=== PATIENT | female | born 1990 | race Hispanic/Latino ===

== ENCOUNTER 2024-05-14 12:51 | Emergency (ER) | payer BC ==
[~2024-05-14] VITALS: Ht 162.6 cm; Wt 66.7 kg
[2024-05-14 13:51] LABS: BASOPHILS # (AUTO) 0.02 K/uL (0.00-0.20); BASOPHILS % (AUTO) 0.4 % (0.0-5.0); EOSINOPHILS # (AUTO) 0.08 K/uL (0.00-0.70); EOSINOPHILS % (AUTO) 1.4 % (0.0-8.0); HEMATOCRIT 35.2 % (36-48); IMMATURE GRANULOCYTE ABSOLUTE 0.01 K/uL (0-1); LYMPHOCYTES # (AUTO) 2.2 K/uL (1.0-4.8); LYMPHOCYTES % (AUTO) 38.3 % (21.0-51.0); MEAN CORPUSCULAR HEMOGLOBIN 32.9 pg (27.0-33.0); MEAN CORPUSCULAR HGB CONC 33.8 g/dL (32.0-36.0); MEAN CORPUSCULAR VOLUME 97.2 fL (79-99); MONOCYTES # (AUTO) 0.6 K/uL (0.1-1.0); MONOCYTES % (AUTO) 10.2 % (3.0-13.0); NEUTROPHILS # (AUTO) 2.8 K/uL (1.8-7.7); NEUTROPHILS % (AUTO) 49.5 % (40.0-77.0); PLATELET COUNT (AUTO) 218 K/uL (130-400); RED BLOOD CELL COUNT(AUTO) 3.62 MIL/uL (4.00-5.50); RED CELL DISTRIBUTION WIDTH 12.3 % (11.0-15.5); WHITE BLOOD COUNT (AUTO) 5.7 K/uL (4.8-10.8)
[2024-05-14 13:59] LABS: CREATININE 0.9 mg/dL (0.5-1.0); POTASSIUM 4.8 mmol/L (3.5-5.1)
[2024-05-14 14:04] LABS: ALBUMIN 3.9 g/dL (3.5-5.0); BILIRUBIN,TOTAL 0.2 mg/dL (0.2-1.0); TOTAL PROTEIN, SERUM 7.3 g/dL (6.0-8.3)
[2024-05-14] MEDS: 0.9%NACL 1000ML 1,000 ML IV ONE (14:08)
[2024-05-14 14:26] LABS: APPEARANCE,URINE CLEAR (CLEAR); BILIRUBIN,URINE NEGATIVE (NEGATIVE); COLOR,URINE COLORLESS (YELLOW); GLUCOSE, URINE (UA) NEGATIVE (NEGATIVE); KETONES,URINE NEGATIVE (NEGATIVE); LEUKOCYTE ESTERASE ,URINE NEGATIVE Leu/uL (NEGATIVE); NITRATE,URINE NEGATIVE (NEGATIVE); OCCULT BLOOD,URINE NEGATIVE (NEGATIVE); PROTEIN,URINE NEGATIVE (NEGATIVE); UROBILINOGEN,URINE 0.2 mg/dL (0.2-1.0)
[2024-05-14 14:38] LABS: ADD UA MICROSCOPIC NO
[2024-05-14 14:41] LABS: HCG,QUALITATIVE URINE NEGATIVE (NEGATIVE)
[2024-05-14] MEDS ORDERED: GOLY4L PO (14:43)
[2024-05-14] MEDS: KETOROLAC 30MG VIAL (30MG/ML) IVP ONE (14:54)
[2024-05-14] MEDS: SOLU-MEDROL 125MG VIAL IVP ONE (15:38)
[2024-05-14] MEDS ORDERED: IBUP-2077 PO (15:40)
[2024-05-14] MEDS ORDERED: METH4TAB3 PO (15:40)
[2024-05-14 16:46] VITALS: BP 105/63; PULSE 81; RESP 18; O2SAT 99
== END 2024-05-14 16:46 | disposition home or self-care (01) ==
LOC: EDH 12:51
DX: K59.00 Constipation, unspecified (principal); M94.0 Chondrocostal junction syndrome [Tietze]; E86.0 Dehydration; Z79.899 Other long term (current) drug therapy; Z98.890 Other specified postprocedural states
CPT/HCPCS: 99284; 74176; 96374; 96361; 96375; 80053; 83690; 85025; 81003; 81025; 36415; J7030; J2919; J1885